=== PATIENT | female | born 1975 | race Caucasian/White ===

== ENCOUNTER 2017-01-12 06:19 | Day surgery (SDC) | payer BC ==
--- NOTE | ~2017-01-12 | OP ---
Record Of Operation [facility] [address] [place]. [address] NAME: NONI FONTANA : 79 STATUS : [facility]#: [id number] AGE: 41 ADM/REG DATE : 01/12/17 MR#: [id number] REPORT SERV DATE: 01/12/17 DICTATED BY: TJ MOYA DATE: 01/12/17 REPORT STATUS : Draft TRANSCRIBED BY: MODL DATE: 01/12/17 DATE OF PROCEDURE: 01/12/2017 PREOPERATIVE DIAGNOSIS: Distal right ureteral calculus. POSTOPERATIVE DIAGNOSIS: Distal right ureteral calculus. PROCEDURES: Cystoscopy, right retrograde pyelogram, right ureteroscopic stone extraction, and right double-J stent placement. SURGEON: Tj Moya M.D. ANESTHESIA: General endotracheal. ESTIMATED BLOOD LOSS: Less than 5 mL. FLUID REPLACEMENT: 1 L crystalloid. DRAINS: 6-Singaporean, 24 cm double-J right ureteral stent with strings externalized. INDICATION: 41-year-old white female with a symptomatic distal right ureteral calculus. TECHNIQUE: The patient was identified, brought to the operating room, administered general anesthetic agent by the Anesthesia Service, and intubated. He was positioned in dorsal lithotomy position. Vulva, groin, and introitus were prepped and draped in the usual sterile fashion. A 22-Singaporean cystoscopic sheath was placed in bladder with an obturator. The obturator was removed and a 30-degree cystoscopic lens inserted. Bladder was surveyed. No urothelial lesions were noted. The right ureteral orifice is edematous. There were no stones in the bladder. Right retrograde pyelogram was made with a 5-Singaporean cone-tipped catheter. It showed a mild hydroureteronephrosis down to the ureterovesical junction and a filling defect at the ureterovesical junction. I removed the cone-tipped catheter and inserted a 0.35 wire up the right ureter. Over the wire, I dilated the right ureteral orifice with a 4 cm ureteral balloon to a total of 8 atmospheres and held it there for three and a half minutes. I then removed the balloon and the cystoscope leaving the wire behind. I inserted the semi-rigid ureteroscope through the urethra in the bladder and into the distal ureter. The stone was identified. It was captured in a NGage basket and extracted. We sent the stone for chemical analysis. I reintroduced the ureteroscope and advanced it all the way up into the proximal ureter. No further stones were seen. I backfilled the renal pelvis with diluted contrast material and removed the ureteroscope. I then back- loaded the cystoscope onto the wire and positioned a 6-Singaporean 24 cm double-J right ureteral stent with proximal end being coiled in the renal pelvis under fluoroscopy and the distal end in the bladder under direct vision. The strings were left attached and the wire was removed. The bladder was drained. The strings were secured to the patient. She was Record Of [address] [place]. [address] NAME: NONI FONTANA : 79 STATUS : [facility] PAT#: [id number] AGE: 41 ADM/REG DATE : 01/12/17 MR#: [id number] REPORT SERV DATE: 01/12/17 DICTATED BY: TJ MOYA DATE: 01/12/17 REPORT STATUS : Draft TRANSCRIBED BY: SINDY DATE: 01/12/17 awakened and taken to the recovery unit in stable and satisfactory condition. PF/SINDY Tj Moya M.D. / [id number] CC: Patience Boss DO
[~2017-01-12 06:19] MED LIST: ADVIL PO; DIL2TAB PO; FLOMAX4 PO; FORTAMET500 MG PO; GLUCOTRO10 PO; LOP50 PO; NORV5 PO; VITAMIN D31000 UNIT; VITAMIN K2 PO; ZOFRAN4 PO
[2017-01-18 11:06] LABS: STONE COMPOSITION TWO DNR (())
== END 2017-01-12 10:48 | disposition home or self-care (01) ==
LOC: SDC 06:19
PROVIDERS: Urology
PROC: 0TP Urinary System, Removal (ICD-10-PCS; 2017-01-12)
PROC: 0T768DZ Dilation of Right Ureter with Intraluminal Device, Via Natural or Artificial Opening Endoscopic (ICD-10-PCS; principal; 2017-01-12 07:45)
DX: N20.1 Calculus of ureter (principal); I10 Essential (primary) hypertension; E11.9 Type 2 diabetes mellitus without complications; F17.200 Nicotine dependence, unspecified, uncomplicated; Z87.442 Personal history of urinary calculi; Z90.710 Acquired absence of both cervix and uterus; Z90.49 Acquired absence of other specified parts of digestive tract; Z98.890 Other specified postprocedural states
CPT/HCPCS: 74420; 82365; 82962; 93005; C1726; C2617; J2250; J2405; J2710; J3010; Q9967